=== PATIENT | female | born 2000 | race Two or more races ===

== ENCOUNTER 2024-06-09 09:22 | Emergency (ER) | payer OTHER ==
[~2024-06-09] VITALS: Ht 157.5 cm; Wt 95.3 kg
[2024-06-09] MEDS ORDERED: FAMOtidine 10 MG/ML (4ML VIAL) IV STA (10:11)
[2024-06-09] MEDS ORDERED: FAMOTIDINE/PF 20 MG/2 ML VIAL ONE (11:16)
[2024-06-09 11:51] LABS: HEMATOCRIT 38.4 % (36.0-45.00); HEMOGLOBIN 12.3 g/dL (12.0-15.00); MEAN CELL VOLUME 77.4 fL (80.00-100.00); MEAN CORPUSCULAR HEMOGLOBIN 24.8 pg (27.00-32.0); PLATELET COUNT 258 K/uL (150-450); RED BLOOD COUNT 4.96 M/uL (4.00-6.00); RED CELL DISTRIBUTION WIDTH 15.8 % (11.5-14.5)
[2024-06-09 12:18] LABS: ALBUMIN 3.7 gm/dL (3.4-5.0); ALKALINE PHOSPHATASE 86 U/L (50-136); ALT/SGPT 19 U/L (12-78); AMYLASE 46 U/L (25-115); ANION GAP 6 (10.0-20.0); AST/SGOT 16 U/L (15-37); BILIRUBIN TOTAL 0.22 mg/dL (0.3-1.2); BILIRUBIN,CONJUGATED < 0.10 mg/dL (0.0-0.2); BILIRUBIN,UNCONJUGATED 0.12 mg/dL (0.0-0.6); BLOOD UREA NITROGEN 9 mg/dL (7-18); BUN CREA RATIO 13 (7.0-25.0); CALCIUM 9.4 mg/dL (8.5-10.1); CARBON DIOXIDE 30 mEq/L (21-32); CHLORIDE 108 mmol/L (98-107); CREATININE SERUM 0.68 mg/dL (0.55-1.02); GFR 107.22; GLUCOSE FASTING 99 mg/dL (65-100); OSMOLALITY SERUM 278 MOSM/KG (275-295); POTASSIUM 4.16 mEq/L (3.5-5.1); SODIUM 140 mmol/L (136-145); TOTAL PROTEIN 7.9 gm/dL (6.4-8.2)
[2024-06-09 12:35] LABS: URINE APPEARANCE Cloudy; URINE BILIRRUBIN Negative (NEGATIVE); URINE BLOOD Negative; URINE COLOR Yellow; URINE GLUCOSE Negative (NEGATIVE); URINE KETONE Negative (NEGATIVE); URINE LEUKOCYTE Large; URINE NITRATE Negative; URINE PROTEIN Negative (NEGATIVE); URINE UROBILINOGEN 0.2 E.U./dl
[2024-06-09 12:40] LABS: URINE EPITHELIAL CELLS 115.8 uL (0.0-38.8); URINE WBC 384.2 uL (0.0-23.2)
[2024-06-09 13:56] LABS: URINE CAST 0.44 uL (0.0-1.40)
[2024-06-09 13:57] LABS: URINE CRYSTALS MODERATE /HPF
== END 2024-06-09 14:59 | disposition home or self-care (01) ==
LOC: ER 09:24
PROVIDERS: General Practice
DX: R10.9 Unspecified abdominal pain (principal); Z91.013 Allergy to seafood

== ENCOUNTER 2024-06-19 08:53 | Outpatient (CLI) | payer OTHER ==
[2024-06-19 10:22] LABS: PH,URINE 6.5 (5.0-8.0); URINE APPEARANCE Clear; URINE BILIRRUBIN Negative (NEGATIVE); URINE BLOOD Negative; URINE COLOR Yellow; URINE GLUCOSE Negative (NEGATIVE); URINE KETONE Negative (NEGATIVE); URINE LEUKOCYTE Trace; URINE NITRATE Negative; URINE PROTEIN Negative (NEGATIVE); URINE UROBILINOGEN 0.2 E.U./dl
[2024-06-19 10:26] LABS: URINE BACTERIA 763.7 uL (0.0-1933); URINE EPITHELIAL CELLS 41.9 uL (0.0-38.8); URINE RBC 8.8 uL (0.0-20.8); URINE WBC 18.2 uL (0.0-23.2)
[2024-06-19 10:35] LABS: HEMOGLOBIN 11.9 g/dL (12.0-15.00); MEAN CELL VOLUME 76.8 fL (80.00-100.00); MEAN CORPUSCULAR HEMOGLOBIN 24.7 pg (27.00-32.0); MEAN CORPUSCULAR HGB CONC 32.2 g/dl (32.0-36.0); PLATELET COUNT 204 K/uL (150-450); RED BLOOD COUNT 4.81 M/uL (4.00-6.00); RED CELL DISTRIBUTION WIDTH 16.4 % (11.5-14.5)
[2024-06-19 11:19] LABS: ALBUMIN 3.6 gm/dL (3.4-5.0); BILIRUBIN TOTAL 0.29 mg/dL (0.3-1.2); CALCIUM 9.3 mg/dL (8.5-10.1); CHOL HDL RATIO 3.1 (0-5.0); CREATININE SERUM 0.62 mg/dL (0.55-1.02); GFR 119.28; GLOBULINA 3.6 G/DL (2.4-3.5); POTASSIUM 4.25 mEq/L (3.5-5.1); TOTAL PROTEIN 7.2 gm/dL (6.4-8.2); TSH 1.45 uIU/mL (0.358-3.74)
== END 2024-06-19 08:58 | disposition home or self-care (01) ==
LOC: LAB 08:53
DX: E66.9 Obesity, unspecified (principal); Z11.3 Encounter for screening for infections with a predominantly sexual mode of transmission

== ENCOUNTER 2024-07-14 07:41 | Outpatient (CLI) | payer OTHER | END 2024-07-14 07:43 | disposition home or self-care (01) | LOC: SONOGRAMA 07:41 | DX: R10.9 Unspecified abdominal pain (principal) ==

== ENCOUNTER 2024-08-23 15:18 | Outpatient (CLI) | payer OTHER ==
[2024-08-23 16:45] LABS: CREATININE SERUM 0.83 mg/dL (0.55-1.02)
== END 2024-08-23 15:23 | disposition home or self-care (01) ==
LOC: LAB 15:18
DX: Z01.818 Encounter for other preprocedural examination (principal)

== ENCOUNTER → 2024-09-03 09:04 | Outpatient (CLI) | payer OTHER | END | disposition home or self-care (01) | LOC: TOM 09:04 | DX: R10.9 Unspecified abdominal pain (principal) ==

== ENCOUNTER → 2024-09-03 11:14 | Outpatient (CLI) | payer OTHER | END | disposition home or self-care (01) | LOC: NUCLEAR 09-02 10:00 | DX: R06.9 Unspecified abnormalities of breathing (principal); I83.93 Asymptomatic varicose veins of bilateral lower extremities ==